=== PATIENT | female | born 1945 | race African-American/Black ===

== ENCOUNTER 2017-08-19 15:32 | Inpatient (IN) | payer OTHER ==
[~2017-08-19] VITALS: Ht 165.1 cm; Wt 100.3 kg
[~2017-08-19 15:32] MED LIST: ALEVE220 MG PO; ATENOLOL100 MG PO; AUGMENTIN500 MG PO; BISACODYL5 MG PO; CEPHALEXIN500 MG PO; CIPROFLOXACIN500 M1 PO; COLACE100 MG PO; CYANOCOBALAM1000 MCG PO; ERGOCALCIF50000 UNIT PO; FEROSUL325 MG PO; FOLIC ACID1 MG PO; FUROSEMIDE40 MG PO; GLIMEPIRIDE2 MG PO; GLUCOPHAGE500 MG PO; HEPARIN SO5000 UNITS SC; LASIX40 MG PO; LINEZOLID600 MG PO; LISINOPRIL40 MG PO; LOSARTAN POTAS100 MG PO; NABI650T PO; NOVOLOG PE100 UNITS/ SC; OXYCODONE HCL5 MG PO; POLYETHYLENE GL17 GM PO; POVIDONE-IODINE30 GM TP; SANTYL30 GM TP; SENNA PLUS TAB1 EACH PO; TYLENOL EXTRA500 MG PO; TYLENOL REGULA325 MG PO; ZESTRIL40 MG PO; [UNRECOGNIZED DRUG - SUPPLY] TP
[2017-08-19 17:26] LABS: BASOPHIL COUNT 0.1 K/uL (0-0.1); EOSINOPHIL (%) 0.7 % (0-5); EOSINOPHIL COUNT 0.1 K/uL (0-0.3); HEMATOCRIT 38.7 % (36.0-46.0); IMMATURE GRANULOCYTE (%) 1.4 % (0.0-0.7); IMMATURE GRANULOCYTE COUNT 0.2 K/uL; INSTRUMENT ABS NEUTROPHIL CT 10.4 K/uL; LYMPHOCYTE COUNT 2.1 K/uL (1.0-2.8); MCH 27.2 PG (29.0-34.0); MCV 87.8 FL (83-99); MEAN PLAT.VOLUME 9.1 uM^3 (9.5-12.4); MONOCYTE (%) 9.2 % (3-12); MONOCYTE COUNT 1.3 K/uL (0-0.8); NEUTROPHIL (%) 73.7 % (45-76); NEUTROPHIL COUNT 10.4 K/uL (1.8-6.4); PLATELET COUNT 451 K/uL (156-360); RBC DIS.WIDTH-CV 15.3 % (11.8-14.6); RBC DIS.WIDTH-SD 49.1 % (39-53); RED BLOOD COUNT 4.41 M/uL (3.80-5.20); WHITE BLOOD COUNT 14.1 K/uL (4.1-10.2)
[2017-08-19 17:36] LABS: CHLORIDE 106 mEq/L (99-109); POTASSIUM 5.9 mEq/L (3.7-5.4); SODIUM 129 mEq/L (136-147)
[2017-08-19 17:38] LABS: GLUCOSE 126 mg/dL (70-99)
[2017-08-19 17:40] LABS: ANION GAP 12 MEQ/L (2-14)
[2017-08-19 17:42] LABS: GFR ESTIMATE (CALCULATED) 33 mL/min/
[2017-08-19 17:43] LABS: UREA NITROGEN (BUN) 72 mg/dL (9-23)
[2017-08-19 18:08] LABS: TROP-I INTERPRETATION NEGATIVE; TROPONIN-I 0.02 ng/mL (0.0-0.30)
[2017-08-19 22:17] LABS: ADD MIUA? YES; BILIRUBIN NEGATIVE; BLOOD SMALL; COLOR YELLOW ((YELLOW)); GLUCOSE (STRIP) NEGATIVE; KETONES NEGATIVE; LEUKOCYTES MODERATE; NITRITE NEGATIVE; PROTEIN (STRIP) NEGATIVE; SPECIFIC GRAVITY 1.014 (1.000-1.030); UROBILINOGEN 0.2 MG/DL (0.2-1.0)
[2017-08-19 22:28] LABS: BACTERIA RARE /HPF; EPITHELIAL CELLS 1+ /HPF; HYALINE CASTS 0-5 /LPF; MUCUS TRACE /LPF; RED BLOOD CELLS 0-5 /HPF (0-5); UNCLASSIFIED CASTS 0-5 /LPF
[2017-08-20] VITALS (7 sets, daily range): BP systolic 103–144; BP diastolic 53–63
[2017-08-20 07:33] LABS: HEMATOCRIT 31.7 % (36.0-46.0); MCH 27.9 PG (29.0-34.0); MCHC 31.5 G/DL (30.0-36.0); MCV 88.3 FL (83-99); MEAN PLAT.VOLUME 9.3 uM^3 (9.5-12.4); PLATELET COUNT 387 K/uL (156-360); RBC DIS.WIDTH-CV 15.5 % (11.8-14.6); RBC DIS.WIDTH-SD 50.3 % (39-53); RED BLOOD COUNT 3.59 M/uL (3.80-5.20); WHITE BLOOD COUNT 18.4 K/uL (4.1-10.2)
[2017-08-20 07:49] LABS: ANION GAP 8 MEQ/L (2-14); CHLORIDE 109 MEQ/L (99-109); GFR ESTIMATE (CALCULATED) 44 mL/min/; GLUCOSE 134 mg/dL (70-99); SAMPLE HEMOLYSIS CHECK 0; SAMPLE ICTERIC CHECK 0; SAMPLE LIPEMIA CHECK 0; SODIUM 134 MEQ/L (136-147); UREA NITROGEN (BUN) 49 mg/dL (9-23); VANCOMYCIN, TROUGH 14.5 MCG/ML (10-20)
[2017-08-20 10:32] LABS: Estimated Average Glucose 143 mg/dL (70-123); HEMOGLOBIN A1c (GLYCOHEMOGLOB) 6.6 % HGB (Below 5.7)
[2017-08-20 12:01] LABS: POINT-OF-CARE METER ID UU14162508; POINT-OF-CARE USER ID PUTDRM
[2017-08-20 18:28] LABS: ANION GAP 8 MEQ/L (2-14); CHLORIDE 110 MEQ/L (99-109); GFR ESTIMATE (CALCULATED) 57 mL/min/; GLUCOSE 151 mg/dL (70-99); SAMPLE HEMOLYSIS CHECK 0; SAMPLE ICTERIC CHECK 0; SAMPLE LIPEMIA CHECK 0; SODIUM 136 MEQ/L (136-147); UREA NITROGEN (BUN) 37 mg/dL (9-23)
[2017-08-20 18:29] LABS: POTASSIUM 3.9 MEQ/L (3.7-5.4)
[2017-08-21 03:25] VITALS: BP 128/59
[2017-08-21 07:00] LABS: HEMATOCRIT 30.3 % (36.0-46.0); MCH 27.5 PG (29.0-34.0); MCHC 30.4 G/DL (30.0-36.0); MCV 90.4 FL (83-99); MEAN PLAT.VOLUME 9.2 uM^3 (9.5-12.4); PLATELET COUNT 359 K/uL (156-360); RBC DIS.WIDTH-CV 15.6 % (11.8-14.6); RBC DIS.WIDTH-SD 51.7 % (39-53); RED BLOOD COUNT 3.35 M/uL (3.80-5.20); WHITE BLOOD COUNT 11.6 K/uL (4.1-10.2)
[2017-08-21 07:15] VITALS: BP 130/57
[2017-08-21 07:26] LABS: ANION GAP 10 MEQ/L (2-14); CHLORIDE 113 MEQ/L (99-109); GFR ESTIMATE (CALCULATED) 57 mL/min/; GLUCOSE 136 mg/dL (70-99); POTASSIUM 3.5 MEQ/L (3.7-5.4); SAMPLE HEMOLYSIS CHECK 0; SAMPLE ICTERIC CHECK 0; SAMPLE LIPEMIA CHECK 0; SODIUM 141 MEQ/L (136-147); UREA NITROGEN (BUN) 25 mg/dL (9-23)
[2017-08-21] MEDS ORDERED: ALEVE220 MG PO (09:46)
[2017-08-21] MEDS ORDERED: CENTRUM SILVER1 EAC3 PO (09:47)
[2017-08-21] MEDS ORDERED: CLONIDINE HCL0.1 MG PO (09:53)
[2017-08-21 11:34] VITALS: BP 129/60
[2017-08-21 11:43] LABS: POINT-OF-CARE METER ID UU14314084
[2017-08-21 15:35] VITALS: BP 122/58
[2017-08-21 17:08] LABS: POINT-OF-CARE METER ID UU14208750
[2017-08-21 20:46] VITALS: BP 119/57
[2017-08-21 23:49] VITALS: BP 146/68
[2017-08-22 04:11] VITALS: BP 124/59
[2017-08-22 06:18] LABS: POINT-OF-CARE METER ID UU14162508
[2017-08-22 07:00] VITALS: BP 133/62
[2017-08-22 07:13] LABS: HEMATOCRIT 30.7 % (36.0-46.0); MCH 28.2 PG (29.0-34.0); MCHC 31.6 G/DL (30.0-36.0); MCV 89.2 FL (83-99); MEAN PLAT.VOLUME 9.2 uM^3 (9.5-12.4); PLATELET COUNT 378 K/uL (156-360); RBC DIS.WIDTH-CV 15.7 % (11.8-14.6); RBC DIS.WIDTH-SD 51.6 % (39-53); RED BLOOD COUNT 3.44 M/uL (3.80-5.20)
[2017-08-22 07:49] LABS: ANION GAP 10 MEQ/L (2-14); CHLORIDE 111 MEQ/L (99-109); GFR ESTIMATE (CALCULATED) 57 mL/min/; GLUCOSE 137 mg/dL (70-99); POTASSIUM 3.8 MEQ/L (3.7-5.4); SAMPLE HEMOLYSIS CHECK 0; SAMPLE ICTERIC CHECK 0; SAMPLE LIPEMIA CHECK 0; SODIUM 140 MEQ/L (136-147); UREA NITROGEN (BUN) 17 mg/dL (9-23)
[2017-08-22 11:45] LABS: POINT-OF-CARE METER ID UU14208750
[2017-08-22 12:26] VITALS: BP 140/67
[2017-08-22 16:31] VITALS: BP 133/63
[2017-08-22 20:00] VITALS: BP 131/61
[2017-08-22 23:30] LABS: POINT-OF-CARE METER ID UU14208750
[2017-08-22 23:37] VITALS: BP 139/65
[2017-08-23 03:26] VITALS: BP 142/66
[2017-08-23 06:03] LABS: EOSINOPHIL (%) 3.4 % (0-5); EOSINOPHIL COUNT 0.4 K/uL (0-0.3); HEMATOCRIT 29.5 % (36.0-46.0); IMMATURE GRANULOCYTE (%) 0.6 % (0.0-0.7); IMMATURE GRANULOCYTE COUNT 0.1 K/uL; INSTRUMENT ABS NEUTROPHIL CT 7.7 K/uL; LYMPHOCYTE COUNT 2.5 K/uL (1.0-2.8); MCH 26.9 PG (29.0-34.0); MCHC 30.5 G/DL (30.0-36.0); MCV 88.3 FL (83-99); MONOCYTE (%) 9.2 % (3-12); MONOCYTE COUNT 1.1 K/uL (0-0.8); NEUTROPHIL (%) 65.2 % (45-76); NEUTROPHIL COUNT 7.7 K/uL (1.8-6.4); PLATELET COUNT 392 K/uL (156-360); RBC DIS.WIDTH-CV 15.6 % (11.8-14.6); RBC DIS.WIDTH-SD 50.3 % (39-53); RED BLOOD COUNT 3.34 M/uL (3.80-5.20); WHITE BLOOD COUNT 11.8 K/uL (4.1-10.2)
[2017-08-23 06:31] LABS: ANION GAP 8 MEQ/L (2-14); ANION GAP 9 MEQ/L (2-14); CHLORIDE 111 MEQ/L (99-109); CHLORIDE 112 MEQ/L (99-109); GFR ESTIMATE (CALCULATED) 57 mL/min/; GFR ESTIMATE (CALCULATED) > 59 mL/min/; GLUCOSE 107 mg/dL (70-99); GLUCOSE 109 mg/dL (70-99); POTASSIUM 3.7 MEQ/L (3.7-5.4); POTASSIUM 3.9 MEQ/L (3.7-5.4); SAMPLE HEMOLYSIS CHECK 0; SAMPLE ICTERIC CHECK 0; SAMPLE LIPEMIA CHECK 0; SODIUM 139 MEQ/L (136-147); SODIUM 141 MEQ/L (136-147); UREA NITROGEN (BUN) 13 mg/dL (9-23)
[2017-08-23 06:42] LABS: POINT-OF-CARE METER ID UU14162508
[2017-08-23 07:35] VITALS: BP 121/58
[2017-08-23 11:59] LABS: POINT-OF-CARE METER ID UU14208750
[2017-08-23 16:03] VITALS: BP 107/54
[2017-08-23 23:33] VITALS: BP 119/56
[2017-08-24 06:40] LABS: POINT-OF-CARE METER ID UU14314084
[2017-08-24 07:10] LABS: EOSINOPHIL (%) 4.6 % (0-5); EOSINOPHIL COUNT 0.5 K/uL (0-0.3); HEMATOCRIT 30.6 % (36.0-46.0); IMMATURE GRANULOCYTE (%) 0.6 % (0.0-0.7); IMMATURE GRANULOCYTE COUNT 0.1 K/uL; INSTRUMENT ABS NEUTROPHIL CT 6.1 K/uL; LYMPHOCYTE COUNT 2.3 K/uL (1.0-2.8); MCH 27.9 PG (29.0-34.0); MCV 89.7 FL (83-99); MEAN PLAT.VOLUME 9.2 uM^3 (9.5-12.4); MONOCYTE (%) 10.3 % (3-12); NEUTROPHIL (%) 60.9 % (45-76); NEUTROPHIL COUNT 6.1 K/uL (1.8-6.4); PLATELET COUNT 395 K/uL (156-360); RBC DIS.WIDTH-CV 15.8 % (11.8-14.6); RED BLOOD COUNT 3.41 M/uL (3.80-5.20); WHITE BLOOD COUNT 9.9 K/uL (4.1-10.2)
[2017-08-24 07:38] VITALS: BP 142/66
[2017-08-24 07:38] LABS: ANION GAP 7 MEQ/L (2-14); CHLORIDE 112 MEQ/L (99-109); GFR ESTIMATE (CALCULATED) > 59 mL/min/; GLUCOSE 116 mg/dL (70-99); SAMPLE HEMOLYSIS CHECK 0; SAMPLE ICTERIC CHECK 0; SAMPLE LIPEMIA CHECK 0; SODIUM 142 MEQ/L (136-147); UREA NITROGEN (BUN) 14 mg/dL (9-23)
[2017-08-24] MEDS ORDERED: LAMISIL250 MG PO (08:45)
[2017-08-24] MEDS ORDERED: METFORMIN HCL500 MG PO (08:45)
[2017-08-24 11:25] LABS: POINT-OF-CARE METER ID UU14208750
== END 2017-08-24 16:40 | disposition home health service (06) | DRG 683 ==
LOC: EME 15:32 → 2EAST 19:58 → EDOF 19:58 → ENRESERV 21:23 → 2EAST 23:19
PROVIDERS: Hospitalist; Internal Medicine; Internal Medicine Nephrology; Physician Assistant
DX: N17.9 Acute kidney failure, unspecified (principal); L03.115 Cellulitis of right lower limb; L03.116 Cellulitis of left lower limb; E87.5 Hyperkalemia; E87.2 Acidosis; E87.1 Hypo-osmolality and hyponatremia; E87.8 Other disorders of electrolyte and fluid balance, not elsewhere classified; E86.0 Dehydration; E55.9 Vitamin D deficiency, unspecified; L89.309 Pressure ulcer of unspecified buttock, unspecified stage; E11.22 Type 2 diabetes mellitus with diabetic chronic kidney disease; R59.1 Generalized enlarged lymph nodes; I89.0 Lymphedema, not elsewhere classified; I87.2 Venous insufficiency (chronic) (peripheral); I87.8 Other specified disorders of veins; I83.029 Varicose veins of left lower extremity with ulcer of unspecified site; I83.019 Varicose veins of right lower extremity with ulcer of unspecified site; L97.919 Non-pressure chronic ulcer of unspecified part of right lower leg with unspecified severity; L97.929 Non-pressure chronic ulcer of unspecified part of left lower leg with unspecified severity; I12.9 Hypertensive chronic kidney disease with stage 1 through stage 4 chronic kidney disease, or unspecified chronic kidney disease; N18.2 Chronic kidney disease, stage 2 (mild); D63.1 Anemia in chronic kidney disease; B35.3 Tinea pedis; J43.9 Emphysema, unspecified; L29.9 Pruritus, unspecified; E66.9 Obesity, unspecified; Z68.36 Body mass index [BMI] 36.0-36.9, adult
CPT/HCPCS: 71020; 73502; 73564; 73630; 80048; 80048 91; 80069; 80202; 81003; 82306; 82948; 83036; 83605; 84484; 85025; 85027; 87040; 90686; 93005; 93970; 99281; 99285; J1644; J1815; J2270; J2405; J2543; J3370; J7030; J7050; J7120

== ENCOUNTER 2017-10-22 19:33 | Inpatient (IN) | payer OTHER ==
[~2017-10-22] VITALS: Ht 165.1 cm; Wt 99.7 kg
[~2017-10-22 19:33] MED LIST changes: +CENTRUM SILVER1 EAC3 PO; +CLONIDINE HCL0.1 MG PO; +LAMISIL250 MG PO; +METFORMIN HCL500 MG PO
[2017-10-22 22:04] LABS: HEMATOCRIT 33.4 % (36.0-46.0); MCHC 30.8 G/DL (30.0-36.0); MCV 90.8 FL (83-99); MEAN PLAT.VOLUME 9.2 uM^3 (9.5-12.4); PLATELET COUNT 475 K/uL (156-360); RBC DIS.WIDTH-CV 15.4 % (11.8-14.6); RBC DIS.WIDTH-SD 51.6 % (39-53); RED BLOOD COUNT 3.68 M/uL (3.80-5.20); WHITE BLOOD COUNT 12.8 K/uL (4.1-10.2)
[2017-10-22 22:11] LABS: CHLORIDE 108 mEq/L (99-109); POTASSIUM 5.8 mEq/L (3.7-5.4); SODIUM 132 mEq/L (136-147)
[2017-10-22 22:13] LABS: GLUCOSE 102 mg/dL (70-99)
[2017-10-22 22:14] LABS: ANION GAP 10 MEQ/L (2-14)
[2017-10-22 22:16] LABS: GFR ESTIMATE (CALCULATED) 28 mL/min/
[2017-10-22 22:17] LABS: UREA NITROGEN (BUN) 49 mg/dL (9-23)
[2017-10-22] MEDS ORDERED: GLUCOPHAGE500 MG PO (23:22)
[2017-10-22] MEDS ORDERED: LEVOFLOXACIN750 MG PO (23:26)
[2017-10-23] VITALS (8 sets, daily range): BP systolic 99–151; BP diastolic 51–65
[2017-10-23 06:20] LABS: POINT-OF-CARE METER ID UU14208753
[2017-10-23 07:31] LABS: MCH 27.7 PG (29.0-34.0); MCHC 30.3 G/DL (30.0-36.0); MCV 91.2 FL (83-99); MEAN PLAT.VOLUME 8.9 uM^3 (9.5-12.4); PLATELET COUNT 504 K/uL (156-360); RBC DIS.WIDTH-CV 15.5 % (11.8-14.6); RBC DIS.WIDTH-SD 51.8 % (39-53); RED BLOOD COUNT 3.29 M/uL (3.80-5.20); WHITE BLOOD COUNT 16.7 K/uL (4.1-10.2)
[2017-10-23 07:49] LABS: ANION GAP 9 MEQ/L (2-14); CHLORIDE 111 MEQ/L (99-109); GFR ESTIMATE (CALCULATED) 33 mL/min/; GLUCOSE 98 mg/dL (70-99); POTASSIUM 4.7 MEQ/L (3.7-5.4); SAMPLE HEMOLYSIS CHECK 0; SAMPLE ICTERIC CHECK 0; SAMPLE LIPEMIA CHECK 0; SODIUM 135 MEQ/L (136-147); UREA NITROGEN (BUN) 43 mg/dL (9-23)
[2017-10-23 11:45] LABS: POINT-OF-CARE METER ID UU14117124
[2017-10-23 17:01] LABS: POINT-OF-CARE METER ID UU14208753
[2017-10-23 22:04] LABS: POINT-OF-CARE METER ID UU14208753
[2017-10-24 06:49] LABS: POINT-OF-CARE METER ID UU14117124
[2017-10-24 07:29] VITALS: BP 126/59
[2017-10-24 08:49] LABS: ADD MIUA? YES; BILIRUBIN NEGATIVE; BLOOD NEGATIVE; COLOR YELLOW ((YELLOW)); GLUCOSE (STRIP) NEGATIVE; KETONES NEGATIVE; LEUKOCYTES TRACE; NITRITE NEGATIVE; PROTEIN (STRIP) NEGATIVE; SPECIFIC GRAVITY 1.014 (1.000-1.030); UROBILINOGEN 0.2 MG/DL (0.2-1.0)
[2017-10-24 09:02] LABS: BACTERIA RARE /HPF; BUDDING YEAST 3+; EPITHELIAL CELLS 1+ /HPF; GRANULAR CASTS 0-5 /LPF; HYALINE CASTS 0-5 /LPF; MUCUS 1+ /LPF; RED BLOOD CELLS 0-5 /HPF (0-5); WHITE BLOOD CELLS 0-5 /HPF (0-5)
[2017-10-24 09:25] LABS: MCHC 31.1 G/DL (30.0-36.0); MEAN PLAT.VOLUME 8.7 uM^3 (9.5-12.4); PLATELET COUNT 435 K/uL (156-360); RBC DIS.WIDTH-CV 15.8 % (11.8-14.6); RBC DIS.WIDTH-SD 52.3 % (39-53); RED BLOOD COUNT 3.11 M/uL (3.80-5.20); WHITE BLOOD COUNT 10.3 K/uL (4.1-10.2)
[2017-10-24 09:49] LABS: ANION GAP 8 MEQ/L (2-14); CHLORIDE 113 MEQ/L (99-109); SAMPLE HEMOLYSIS CHECK 0; SAMPLE ICTERIC CHECK 0; SAMPLE LIPEMIA CHECK 0; SODIUM 137 MEQ/L (136-147)
[2017-10-24 09:55] LABS: GFR ESTIMATE (CALCULATED) 38 mL/min/; GLUCOSE 114 mg/dL (70-99); UREA NITROGEN (BUN) 30 mg/dL (9-23)
[2017-10-24 11:26] LABS: POINT-OF-CARE METER ID UU14117124
[2017-10-24 15:30] VITALS: BP 118/77
[2017-10-24 17:06] LABS: POINT-OF-CARE METER ID UU14188577
[2017-10-24 21:55] LABS: POINT-OF-CARE METER ID UU14188577
[2017-10-24 23:18] VITALS: BP 117/56
[2017-10-25 06:38] LABS: HEMATOCRIT 27.8 % (36.0-46.0); MCH 28.2 PG (29.0-34.0); MCHC 31.3 G/DL (30.0-36.0); MCV 90.3 FL (83-99); MEAN PLAT.VOLUME 8.8 uM^3 (9.5-12.4); PLATELET COUNT 424 K/uL (156-360); RBC DIS.WIDTH-CV 15.9 % (11.8-14.6); RBC DIS.WIDTH-SD 52.3 % (39-53); RED BLOOD COUNT 3.08 M/uL (3.80-5.20); WHITE BLOOD COUNT 9.8 K/uL (4.1-10.2)
[2017-10-25 06:52] LABS: POINT-OF-CARE METER ID UU14208753
[2017-10-25 07:05] LABS: ANION GAP 8 MEQ/L (2-14); CHLORIDE 113 MEQ/L (99-109); GFR ESTIMATE (CALCULATED) 44 mL/min/; GLUCOSE 94 mg/dL (70-99); POTASSIUM 3.7 MEQ/L (3.7-5.4); SAMPLE HEMOLYSIS CHECK 0; SAMPLE ICTERIC CHECK 0; SAMPLE LIPEMIA CHECK 0; SODIUM 137 MEQ/L (136-147); UREA NITROGEN (BUN) 26 mg/dL (9-23)
[2017-10-25 07:40] VITALS: BP 115/56
[2017-10-25 11:39] LABS: POINT-OF-CARE METER ID UU14208753
[2017-10-25 16:19] VITALS: BP 134/83
[2017-10-25 16:57] LABS: POINT-OF-CARE METER ID UU14208753
[2017-10-25 21:38] LABS: POINT-OF-CARE METER ID UU14117124
[2017-10-25 23:46] VITALS: BP 124/60
[2017-10-26 06:26] LABS: POINT-OF-CARE METER ID UU14149397
[2017-10-26 08:12] VITALS: BP 110/55
[2017-10-26 11:53] VITALS: BP 107/52
[2017-10-26 12:17] LABS: POINT-OF-CARE METER ID UU14117124
[2017-10-26 16:58] VITALS: BP 124/58
[2017-10-26 17:12] LABS: POINT-OF-CARE METER ID UU14149397
[2017-10-26 22:01] LABS: POINT-OF-CARE METER ID UU14149397
[2017-10-26 23:36] VITALS: BP 136/74
[2017-10-27 06:19] LABS: POINT-OF-CARE METER ID UU14188577
[2017-10-27 06:58] LABS: HEMATOCRIT 26.6 % (36.0-46.0); MCH 27.3 PG (29.0-34.0); MCHC 30.1 G/DL (30.0-36.0); MCV 90.8 FL (83-99); MEAN PLAT.VOLUME 8.9 uM^3 (9.5-12.4); PLATELET COUNT 472 K/uL (156-360); RBC DIS.WIDTH-CV 16.3 % (11.8-14.6); RBC DIS.WIDTH-SD 54.7 % (39-53); RED BLOOD COUNT 2.93 M/uL (3.80-5.20); WHITE BLOOD COUNT 8.9 K/uL (4.1-10.2)
[2017-10-27 07:23] LABS: ANION GAP 9 MEQ/L (2-14); CHLORIDE 115 MEQ/L (99-109); GFR ESTIMATE (CALCULATED) 52 mL/min/; GLUCOSE 86 mg/dL (70-99); POTASSIUM 4.1 MEQ/L (3.7-5.4); SAMPLE HEMOLYSIS CHECK 0; SAMPLE ICTERIC CHECK 0; SAMPLE LIPEMIA CHECK 0; SODIUM 142 MEQ/L (136-147); UREA NITROGEN (BUN) 15 mg/dL (9-23)
[2017-10-27 07:28] VITALS: BP 117/56
[2017-10-27 11:47] LABS: POINT-OF-CARE METER ID UU14149397
[2017-10-27 15:25] VITALS: BP 143/65
[2017-10-27 17:22] LABS: POINT-OF-CARE METER ID UU14188577
[2017-10-27 22:05] LABS: POINT-OF-CARE METER ID UU14188577
[2017-10-27 23:14] VITALS: BP 144/65
[2017-10-27 23:39] VITALS: BP 123/56
[2017-10-28] VITALS (7 sets, daily range): BP systolic 108–148; BP diastolic 54–66
[2017-10-28 06:04] LABS: POINT-OF-CARE METER ID UU14149397
[2017-10-28 06:59] LABS: EOSINOPHIL (%) 4.1 % (0-5); EOSINOPHIL COUNT 0.4 K/uL (0-0.3); HEMATOCRIT 25.4 % (36.0-46.0); IMM.RETIC FRACTION 18.5 % (3-19); IMMATURE GRANULOCYTE (%) 0.8 % (0.0-0.7); IMMATURE GRANULOCYTE COUNT 0.1 K/uL; INSTRUMENT ABS NEUTROPHIL CT 5.9 K/uL; LYMPHOCYTE COUNT 2.3 K/uL (1.0-2.8); MCH 27.9 PG (29.0-34.0); MCHC 30.3 G/DL (30.0-36.0); MEAN PLAT.VOLUME 8.9 uM^3 (9.5-12.4); MONOCYTE (%) 10.9 % (3-12); MONOCYTE COUNT 1.1 K/uL (0-0.8); NEUTROPHIL (%) 60.2 % (45-76); NEUTROPHIL COUNT 5.9 K/uL (1.8-6.4); PLATELET COUNT 396 K/uL (156-360); RBC DIS.WIDTH-CV 16.4 % (11.8-14.6); RBC DIS.WIDTH-SD 54.4 % (39-53); RED BLOOD COUNT 2.76 M/uL (3.80-5.20); RETIC HGB EQUIVALENT 30.1 (28-36); RETICULOCYTE COUNT 2.3 % (0.5-1.8); WHITE BLOOD COUNT 9.8 K/uL (4.1-10.2)
[2017-10-28 07:54] LABS: Estimated Average Glucose 140 mg/dL (70-123); HEMOGLOBIN A1c (GLYCOHEMOGLOB) 6.5 % HGB (Below 5.7)
[2017-10-28 08:01] LABS: FERRITIN 187 NG/ML (10-291)
[2017-10-28 08:03] LABS: ALKALINE PHOSPHATASE 54 IU/L (3-129); ANION GAP 9 MEQ/L (2-14); CHLORIDE 114 MEQ/L (99-109); GFR ESTIMATE (CALCULATED) 57 mL/min/; GLUCOSE 91 mg/dL (70-99); IRON 31 MCG/DL (35-150); POTASSIUM 4.2 MEQ/L (3.7-5.4); SAMPLE HEMOLYSIS CHECK 0; SAMPLE ICTERIC CHECK 0; SAMPLE LIPEMIA CHECK 0; SODIUM 141 MEQ/L (136-147); TOTAL BILIRUBIN 0.2 MG/DL (0.0-1.0); UREA NITROGEN (BUN) 15 mg/dL (9-23)
[2017-10-28] MEDS ORDERED: KEFLEX500 MG PO (09:13)
[2017-10-28] MEDS ORDERED: Vitamin B-12 SL (09:14)
[2017-10-28] MEDS ORDERED: FEOSOL325 MG PO (09:14)
[2017-10-28 11:36] LABS: POINT-OF-CARE METER ID UU14149397
[2017-10-28 15:38] LABS: HEMATOCRIT 28.3 % (36.0-46.0); MCV 89.3 FL (83-99)
[2017-10-28 16:23] LABS: POINT-OF-CARE METER ID UU14117124
== END 2017-10-28 19:57 | disposition home health service (06) | DRG 683 ==
LOC: EME 19:33 → 3EAST 23:06 → EDOF 23:06 → ENRESERV 23:07 → 3EAST 10-23 01:42 → ENPENDDIS 10-28 → 3EAST 10-28 19:57
PROVIDERS: Hospitalist; Internal Medicine; Physician Assistant
PROC: 30233N1 Transfusion of Nonautologous Red Blood Cells into Peripheral Vein, Percutaneous Approach (ICD-10-PCS; principal; 2017-10-28)
DX: N17.9 Acute kidney failure, unspecified (principal); L03.115 Cellulitis of right lower limb; L03.116 Cellulitis of left lower limb; B95.4 Other streptococcus as the cause of diseases classified elsewhere; B96.5 Pseudomonas (aeruginosa) (mallei) (pseudomallei) as the cause of diseases classified elsewhere; E87.5 Hyperkalemia; E86.0 Dehydration; E87.2 Acidosis; I87.2 Venous insufficiency (chronic) (peripheral); I87.8 Other specified disorders of veins; I89.0 Lymphedema, not elsewhere classified; I12.9 Hypertensive chronic kidney disease with stage 1 through stage 4 chronic kidney disease, or unspecified chronic kidney disease; E11.22 Type 2 diabetes mellitus with diabetic chronic kidney disease; N18.2 Chronic kidney disease, stage 2 (mild); D64.9 Anemia, unspecified; D23.72 Other benign neoplasm of skin of left lower limb, including hip; D23.71 Other benign neoplasm of skin of right lower limb, including hip; E78.5 Hyperlipidemia, unspecified; E55.9 Vitamin D deficiency, unspecified; E66.9 Obesity, unspecified; Z68.36 Body mass index [BMI] 36.0-36.9, adult; Z79.84 Long term (current) use of oral hypoglycemic drugs
CPT/HCPCS: 80048; 80053; 81003; 82607; 82728; 82746; 82948; 83036; 83540; 83605; 84466; 85014; 85018; 85025; 85027; 85045; 86850; 86900; 86901; 86920; 87040; 87070; 87075; 87076; 87077; 87147; 87185; 87186; 87205; 87641; 93005; 93970; 99281; 99285; A6260; J1644; J1815; J2543; J3370; J7030; J7050; J7120; P9016

== ENCOUNTER → 2018-03-16 | Outpatient (CLI) | payer OTHER ==
[~2018-03-16] MED LIST changes: +FEOSOL325 MG PO; +KEFLEX500 MG PO; +LEVOFLOXACIN750 MG PO; +Vitamin B-12 SL
== END | disposition home or self-care (01) ==
LOC: EKG 12:59
DX: I51.7 Cardiomegaly (principal); I05.1 Rheumatic mitral insufficiency; I07.1 Rheumatic tricuspid insufficiency
CPT/HCPCS: 93306

== ENCOUNTER 2018-06-25 17:40 | Inpatient (IN) | payer OTHER ==
[~2018-06-25] VITALS: Ht 165.1 cm; Wt 93.5 kg
[2018-06-25 19:41] LABS: HEMATOCRIT 25.8 % (36.0-46.0); HEMOGLOBIN 8.2 G/DL (11.9-15.5); MCH 25.3 PG (29.0-34.0); MCHC 31.8 G/DL (30.0-36.0); MCV 79.6 FL (83-99); RBC DIS.WIDTH-CV 16.3 % (11.8-14.6); RBC DIS.WIDTH-SD 47.7 % (39-53); RED BLOOD COUNT 3.24 M/uL (3.80-5.20)
[2018-06-25 19:43] LABS: WHITE BLOOD COUNT 41.6 K/uL (4.1-10.2)
[2018-06-25 20:02] LABS: ALBUMIN 2.6 G/DL (3.2-4.8); ALKALINE PHOSPHATASE 109 IU/L (3-129); ALT (GPT) 10 IU/L (3-49); AST (GOT) 11 IU/L (2-34); CHLORIDE 100 MEQ/L (99-109); CREATININE 2.2 MG/DL (0.6-1.3); GFR ESTIMATE (CALCULATED) 28 mL/min/; GLUCOSE 159 mg/dL (70-99); POTASSIUM 4.8 MEQ/L (3.7-5.4); SODIUM 128 MEQ/L (136-147); TOTAL BILIRUBIN 0.4 MG/DL (0.0-1.0); TOTAL PROTEIN 7.5 G/DL (6.4-8.3); UREA NITROGEN (BUN) 48 mg/dL (9-23)
[2018-06-25 20:15] LABS: BASOPHIL (%) 0.3 % (0-1); BASOPHIL COUNT 0.1 K/uL (0-0.1); EOSINOPHIL (%) 0 % (0-5); IMMATURE GRANULOCYTE (%) 1.9 % (0.0-0.7); LYMPHOCYTE COUNT 2.9 K/uL (1.0-2.8); MONOCYTE (%) 9.1 % (3-12); MONOCYTE COUNT 3.8 K/uL (0-0.8); NEUTROPHIL (%) 81.7 % (45-76); PLATELET COUNT 631 K/uL (156-360)
[2018-06-25 20:51] LABS: INTER. NORMALIZED RATIO 1.7
[2018-06-25 20:53] LABS: PTT 29.5 SEC (25-37)
[2018-06-25 21:04] LABS: TROP-I INTERPRETATION INDETERMINATE
[2018-06-25] MEDS ORDERED: CODEINE PO (22:48)
[2018-06-26] VITALS (12 sets, daily range): BP systolic 82–130; BP diastolic 49–60
[2018-06-26 03:20] LABS: CHLORIDE 107 MEQ/L (99-109); CREATININE 2.1 MG/DL (0.6-1.3); GFR ESTIMATE (CALCULATED) 30 mL/min/; GLUCOSE 130 mg/dL (70-99); POTASSIUM 4.2 MEQ/L (3.7-5.4); UREA NITROGEN (BUN) 45 mg/dL (9-23)
[2018-06-26 03:23] LABS: SODIUM 135 MEQ/L (136-147)
[2018-06-26 04:24] LABS: TROP-I INTERPRETATION NEGATIVE
[2018-06-26 04:58] LABS: IRON 11 MCG/DL (35-150); TRANSFERRIN SATUR. 13 % (20-55)
[2018-06-26 05:13] LABS: URIC ACID 8.4 mg/dL (3.1-9.2)
[2018-06-26 05:22] LABS: BASOPHIL (%) 0.2 % (0-1); BASOPHIL COUNT 0.1 K/uL (0-0.1); EOSINOPHIL (%) 0.7 % (0-5); EOSINOPHIL COUNT 0.2 K/uL (0-0.3); HEMATOCRIT 20.6 % (36.0-46.0); IMMATURE GRANULOCYTE (%) 1.4 % (0.0-0.7); LYMPHOCYTE (%) 7.8 % (15-42); LYMPHOCYTE COUNT 2.6 K/uL (1.0-2.8); MCH 24.8 PG (29.0-34.0); MCHC 30.1 G/DL (30.0-36.0); MCV 82.4 FL (83-99); MONOCYTE (%) 9.5 % (3-12); MONOCYTE COUNT 3.1 K/uL (0-0.8); NEUTROPHIL (%) 80.4 % (45-76); NEUTROPHIL COUNT 26.5 K/uL (1.8-6.4); PLATELET COUNT 516 K/uL (156-360); RBC DIS.WIDTH-CV 16.5 % (11.8-14.6); RBC DIS.WIDTH-SD 50.2 % (39-53)
[2018-06-26 05:24] LABS: HEMOGLOBIN 6.2 G/DL (11.9-15.5)
[2018-06-26 06:07] LABS: CHLORIDE 110 MEQ/L (99-109); CREATININE 1.9 MG/DL (0.6-1.3); GFR ESTIMATE (CALCULATED) 33 mL/min/; GLUCOSE 129 mg/dL (70-99); SODIUM 136 MEQ/L (136-147); UREA NITROGEN (BUN) 41 mg/dL (9-23)
[2018-06-26 06:21] LABS: HEMOGLOBIN 6.4 G/DL (11.9-15.5); MCV 79.7 FL (83-99)
[2018-06-26 08:03] LABS: THYROTROPIN (TSH) 1.7 MIU/L (0.4-5.5)
[2018-06-26 08:09] LABS: FERRITIN 560 NG/ML (10-291)
[2018-06-26 09:59] LABS: TROP-I INTERPRETATION NEGATIVE; TROPONIN-I 0.29 ng/mL (0.0-0.30)
[2018-06-26] MEDS ORDERED: HYDROCODON-ACE1 EAC7 PO (11:54)
[2018-06-26 16:21] LABS: APPEARANCE SL.HAZY ((CLEAR)); BILIRUBIN NEGATIVE; BLOOD NEGATIVE; COLOR YELLOW ((YELLOW)); GLUCOSE (STRIP) NEGATIVE; KETONES NEGATIVE; LEUKOCYTES NEGATIVE; NITRITE NEGATIVE; PROTEIN (STRIP) NEGATIVE; SPECIFIC GRAVITY 1.016 (1.000-1.030); UROBILINOGEN 0.2 MG/DL (0.2-1.0)
[2018-06-26 16:41] LABS: BACTERIA NONE SEEN /HPF; EPITHELIAL CELLS 1+ /HPF; MUCUS NONE SEEN /LPF; RED BLOOD CELLS 0-5 /HPF (0-5); WHITE BLOOD CELLS 0-5 /HPF (0-5)
[2018-06-27 03:00] VITALS: BP 110/56
[2018-06-27 06:12] LABS: CHLORIDE 114 MEQ/L (99-109); CREATININE 1.9 MG/DL (0.6-1.3); GFR ESTIMATE (CALCULATED) 33 mL/min/; POTASSIUM 4.4 MEQ/L (3.7-5.4); SODIUM 140 MEQ/L (136-147); UREA NITROGEN (BUN) 36 mg/dL (9-23)
[2018-06-27 06:13] LABS: GLUCOSE 74 mg/dL (70-99)
[2018-06-27 06:14] LABS: HEMATOCRIT 26.1 % (36.0-46.0); HEMOGLOBIN 8.1 G/DL (11.9-15.5); PLATELET COUNT 523 K/uL (156-360); RBC DIS.WIDTH-CV 15.9 % (11.8-14.6); RBC DIS.WIDTH-SD 48.7 % (39-53)
[2018-06-27 06:20] LABS: MCV 83.9 FL (83-99); RED BLOOD COUNT 3.11 M/uL (3.80-5.20)
[2018-06-27 09:00] VITALS: BP 106/60
[2018-06-27 11:46] VITALS: BP 106/60
[2018-06-27 15:50] VITALS: BP 103/51
[2018-06-27 20:00] VITALS: BP 117/58
[2018-06-27 23:00] VITALS: BP 114/58
[2018-06-28 02:45] VITALS: BP 131/60
[2018-06-28 05:38] LABS: BASOPHIL (%) 0.3 % (0-1); EOSINOPHIL (%) 3.1 % (0-5); EOSINOPHIL COUNT 0.4 K/uL (0-0.3); HEMATOCRIT 24.6 % (36.0-46.0); HEMOGLOBIN 7.6 G/DL (11.9-15.5); IMMATURE GRANULOCYTE (%) 1.7 % (0.0-0.7); MCH 26.2 PG (29.0-34.0); MCHC 30.9 G/DL (30.0-36.0); MCV 84.8 FL (83-99); MONOCYTE (%) 9.3 % (3-12); MONOCYTE COUNT 1.3 K/uL (0-0.8); NEUTROPHIL (%) 63.6 % (45-76); NEUTROPHIL COUNT 8.6 K/uL (1.8-6.4); PLATELET COUNT 534 K/uL (156-360); RBC DIS.WIDTH-CV 16.5 % (11.8-14.6); RBC DIS.WIDTH-SD 51.3 % (39-53); WHITE BLOOD COUNT 13.4 K/uL (4.1-10.2)
[2018-06-28 05:57] LABS: CHLORIDE 112 MEQ/L (99-109); CREATININE 1.8 MG/DL (0.6-1.3); GFR ESTIMATE (CALCULATED) 36 mL/min/; GLUCOSE 91 mg/dL (70-99); POTASSIUM 3.9 MEQ/L (3.7-5.4); SODIUM 137 MEQ/L (136-147); UREA NITROGEN (BUN) 26 mg/dL (9-23)
[2018-06-28 07:58] VITALS: BP 132/78
[2018-06-28 10:01] LABS: CARBON DIOXIDE (BICARBONATE) 16.7 MEQ/L (20-31)
[2018-06-28 11:30] VITALS: BP 111/76
[2018-06-28 19:14] LABS: HEMATOCRIT 32.3 % (36.0-46.0); MCH 25.6 PG (29.0-34.0); MCHC 29.7 G/DL (30.0-36.0); MCV 86.1 FL (83-99); PLATELET COUNT 660 K/uL (156-360); RBC DIS.WIDTH-CV 16.4 % (11.8-14.6); RBC DIS.WIDTH-SD 51.9 % (39-53); WHITE BLOOD COUNT 13.8 K/uL (4.1-10.2)
[2018-06-28 19:23] LABS: HEMOGLOBIN 9.6 G/DL (11.9-15.5); RED BLOOD COUNT 3.75 M/uL (3.80-5.20)
[2018-06-28 19:50] VITALS: BP 131/60
[2018-06-28 23:42] VITALS: BP 151/65
[2018-06-29 03:59] VITALS: BP 124/70
[2018-06-29 05:48] LABS: BASOPHIL (%) 0.4 % (0-1); EOSINOPHIL COUNT 0.3 K/uL (0-0.3); HEMATOCRIT 25.4 % (36.0-46.0); HEMOGLOBIN 7.8 G/DL (11.9-15.5); IMMATURE GRANULOCYTE (%) 1.7 % (0.0-0.7); LYMPHOCYTE (%) 28.1 % (15-42); LYMPHOCYTE COUNT 3.2 K/uL (1.0-2.8); MCHC 30.7 G/DL (30.0-36.0); MCV 84.7 FL (83-99); MONOCYTE (%) 10.9 % (3-12); MONOCYTE COUNT 1.2 K/uL (0-0.8); NEUTROPHIL (%) 55.9 % (45-76); NEUTROPHIL COUNT 6.3 K/uL (1.8-6.4); PLATELET COUNT 567 K/uL (156-360); RBC DIS.WIDTH-CV 16.7 % (11.8-14.6); RBC DIS.WIDTH-SD 51.9 % (39-53); WHITE BLOOD COUNT 11.2 K/uL (4.1-10.2)
[2018-06-29 06:16] LABS: CHLORIDE 115 MEQ/L (99-109); CREATININE 1.6 MG/DL (0.6-1.3); GFR ESTIMATE (CALCULATED) 41 mL/min/; GLUCOSE 79 mg/dL (70-99); POTASSIUM 4.3 MEQ/L (3.7-5.4); SODIUM 142 MEQ/L (136-147); UREA NITROGEN (BUN) 18 mg/dL (9-23)
[2018-06-29 07:02] VITALS: BP 122/64
[2018-06-29 10:51] VITALS: BP 132/85
[2018-06-29] MEDS ORDERED: LINEZOLID600 MG PO (12:22)
[2018-06-29] MEDS ORDERED: NABI650T PO (12:23)
[2018-06-29] MEDS ORDERED: AMLODIPINE BESYL5 MG PO (12:27)
[2018-06-29 17:36] LABS: STOOL OCCULT BLD 1ST SPECIMEN NEGATIVE
== END 2018-06-29 16:54 | disposition home health service (06) | DRG 872 ==
LOC: EME 17:40 → 4EAST 06-26 00:23 → EDOF 06-26 00:23 → 4EAST 06-26 01:14
PROVIDERS: Hospitalist; Internal Medicine; Physician Assistant; Student in an Organized Health Care Education/Training Program
PROC: 30233N1 Transfusion of Nonautologous Red Blood Cells into Peripheral Vein, Percutaneous Approach (ICD-10-PCS; principal; 2018-06-26)
DX: A41.9 Sepsis, unspecified organism (principal); L03.115 Cellulitis of right lower limb; L03.116 Cellulitis of left lower limb; R65.20 Severe sepsis without septic shock; N17.9 Acute kidney failure, unspecified; B95.62 Methicillin resistant Staphylococcus aureus infection as the cause of diseases classified elsewhere; B96.5 Pseudomonas (aeruginosa) (mallei) (pseudomallei) as the cause of diseases classified elsewhere; E87.2 Acidosis; E11.69 Type 2 diabetes mellitus with other specified complication; M86.661 Other chronic osteomyelitis, right tibia and fibula; I12.9 Hypertensive chronic kidney disease with stage 1 through stage 4 chronic kidney disease, or unspecified chronic kidney disease; E11.22 Type 2 diabetes mellitus with diabetic chronic kidney disease; N18.3 Chronic kidney disease, stage 3 (moderate); E11.622 Type 2 diabetes mellitus with other skin ulcer; I83.028 Varicose veins of left lower extremity with ulcer other part of lower leg; L97.829 Non-pressure chronic ulcer of other part of left lower leg with unspecified severity; I83.018 Varicose veins of right lower extremity with ulcer other part of lower leg; L97.819 Non-pressure chronic ulcer of other part of right lower leg with unspecified severity; E86.0 Dehydration; E87.1 Hypo-osmolality and hyponatremia; D68.9 Coagulation defect, unspecified; E86.1 Hypovolemia; E11.65 Type 2 diabetes mellitus with hyperglycemia; D50.9 Iron deficiency anemia, unspecified; I89.0 Lymphedema, not elsewhere classified; D63.8 Anemia in other chronic diseases classified elsewhere; I44.4 Left anterior fascicular block; E66.9 Obesity, unspecified; Z68.32 Body mass index [BMI] 32.0-32.9, adult; R79.89 Other specified abnormal findings of blood chemistry; M81.0 Age-related osteoporosis without current pathological fracture; E78.5 Hyperlipidemia, unspecified; B35.1 Tinea unguium; I45.10 Unspecified right bundle-branch block; I87.2 Venous insufficiency (chronic) (peripheral); L24.89 Irritant contact dermatitis due to other agents; R26.9 Unspecified abnormalities of gait and mobility; R53.1 Weakness
CPT/HCPCS: 71045; 73590; 73700; 73718; 80048; 80048 91; 80053; 80202; 81003; 82272; 82436; 82607; 82728; 82803; 82948; 83540; 83605; 84133; 84300; 84443; 84466; 84484; 84550; 85014; 85018; 85025; 85027; 85610; 85730; 86850; 86900; 86901; 86920; 87040; 87070; 87075; 87076; 87077; 87147; 87185; 87186; 87205; 93005; 93970; 99281; 99285; C9113; J1644; J2543; J3370; J7030; J7050; P9016